=== PATIENT | male | born 1935 | race African-American/Black ===

== ENCOUNTER 2021-02-23 13:20 | Inpatient (IN) | payer MEDICARE ==
[~2021-02-23] VITALS: Ht 188 cm; Wt 87.5 kg
[2021-02-23 14:55] LABS: HEMATOCRIT. 31.2 % (42.0-52.0); HEMOGLOBIN. 10.2 g/dL (14.0-18.0); MEAN CORPUSCULAR HEMOGLOBIN 29.8 pg (28.0-32.0); MEAN CORPUSCULAR VOLUME 91.6 fL (80.0-94.0); MEAN PLATELET VOLUME 8.5 fl (7.4-10.4); PLATELET 168 x1000/uL (130-400); RED CELL DISTRIBUTION WIDTH 15.5 % (11.6-14.6)
[2021-02-23 15:02] LABS: CHLORIDE 107 mEq/L (98-107)
[2021-02-23] MEDS ORDERED: FUROSEMIDE 20MG/2ML VIAL IVP ONE (16:00)
[2021-02-23 17:22] LABS: CLARITY URINE CLEAR (CLEAR); COLOR URINE YELLOW (YELLOW); KETONES URINE NEGATIVE (NEGATIVE); LEUKOCYTE ESTERASE URINE NEGATIVE (NEGATIVE); NITRITE URINE NEGATIVE (NEGATIVE); OCCULT BLOOD URINE NEGATIVE (NEGATIVE); PH URINE 6.5 (4.5-8.0); PROTEIN URINE NEGATIVE (NEGATIVE); SPECIFIC GRAVITY URINE 1.007 (1.005-1.030); UROBILINOGEN URINE 0.2 E.U./dL (0.2-1.0)
[2021-02-23 17:25] LABS: PLATELET ESTIMATE NORMAL
[2021-02-23] MEDS ORDERED: AMLODIPINE 10MG TABLET PO NR (19:30)
[2021-02-23] MEDS ORDERED: DIPHENHYDRAMINE 50MG/ML VIAL IV PRN (22:45)
[2021-02-23] MEDS ORDERED: NA PHOS,M-B/NA PHOS,DI-BA ENEMA 118ML PR PRN (22:45)
[2021-02-23] MEDS ORDERED: HYDRALAZINE 20MG/ML VIAL IV PRN (22:45)
[2021-02-23] MEDS ORDERED: GUAIFENESIN 200MG/10ML SUGAR FREE UDC PO PRN (22:45)
[2021-02-23] MEDS ORDERED: DOCUSATE SODIUM 100MG CAPSULE PO PRN (22:45)
[2021-02-23] MEDS ORDERED: HYDROCODONE/APAP 7.5/325MG 1 TAB TABLET PO PRN (22:45)
[2021-02-23] MEDS ORDERED: CLONIDINE 0.1MG TABLET PO PRN (22:45)
[2021-02-23] MEDS ORDERED: ACETAMINOPHEN 650MG/20.3ML UDC GT PRN ×2 (22:45)
[2021-02-23] MEDS ORDERED: MAGNESIUM/ALUMINUM HYDROXIDE/SIMETHICONE 30ML UDC PO PRN (22:45)
[2021-02-23] MEDS ORDERED: ACETAMINOPHEN 325MG TABLET PO PRN ×2 (22:45)
[2021-02-23] MEDS ORDERED: HYDROCODONE/ACETAMINOPHEN 10/325MG TABLET PO PRN (22:45)
[2021-02-23] MEDS: METOPROLOL TARTRATE 25MG TABLET PO SCH (22:56)
[2021-02-23] MEDS: HYDRALAZINE HCL 100MG TABLET PO SCH (22:56)
[2021-02-23] MEDS: ENOXAPARIN 30MG/0.3ML SYR SUBCUT SCH (23:33)
[2021-02-24] VITALS (7 sets, daily range): BP systolic 148–169; BP diastolic 58–104
[2021-02-24] MEDS: HYDRALAZINE HCL 100MG TABLET PO SCH ×3 (06:00→22:33)
[2021-02-24 06:21] LABS: BASOPHILS % 0.7 % (0.0-2.0); EOSINOPHILS % 3.1 % (0.0-5.0); HEMATOCRIT. 30.9 % (42.0-52.0); HEMOGLOBIN. 10.4 g/dL (14.0-18.0); LYMPHOCYTES % 21.2 % (20.0-50.0); MEAN CORPUSCULAR HEMOGLOBIN 30.4 pg (28.0-32.0); MEAN CORPUSCULAR VOLUME 90.6 fL (80.0-94.0); MEAN PLATELET VOLUME 8.9 fl (7.4-10.4); MONOCYTES % 14.1 % (2.0-8.0); NEUTROPHILS % 60.9 % (40.0-76.0); PLATELET 167 x1000/uL (130-400); RED BLOOD CELL COUNT 3.41 mill/uL (4.7-6.1); RED CELL DISTRIBUTION WIDTH 15.3 % (11.6-14.6)
[2021-02-24] MEDS ORDERED: AMLO10TA4 PO (07:24)
[2021-02-24] MEDS ORDERED: ENAL5TAB21 MT (07:33)
[2021-02-24] MEDS ORDERED: ERGO80009 (07:33)
[2021-02-24] MEDS ORDERED: DONE5TAB26 MT (07:33)
[2021-02-24] MEDS ORDERED: LORA-250 PO (07:33)
[2021-02-24] MEDS ORDERED: TRAM50TA3 MT (07:33)
[2021-02-24] MEDS ORDERED: ALLO300T2 PO (07:33)
[2021-02-24] MEDS ORDERED: HYDR-4135 MT (07:33)
[2021-02-24] MEDS ORDERED: TAMS-11 PO (07:33)
[2021-02-24] MEDS ORDERED: OMEP20CA14 MT (07:33)
[2021-02-24] MEDS ORDERED: BUDE6.9H INH (07:33)
[2021-02-24] MEDS ORDERED: ATOR20TA65 PO (07:33)
[2021-02-24] MEDS ORDERED: LABE100T5 PO (07:33)
[2021-02-24] MEDS ORDERED: CLOP75TA15 MT (07:33)
[2021-02-24] MEDS ORDERED: RISP1TAB97 MT (07:33)
[2021-02-24] MEDS: METOPROLOL TARTRATE 25MG TABLET PO SCH ×2 (08:02→17:00)
[2021-02-24 08:10] LABS: CHLORIDE 107 mEq/L (98-107)
[2021-02-24 08:19] LABS: LDL CHOLESTEROL 53 mg/dL (5-100)
[2021-02-24 08:20] LABS: HDL CHOLESTEROL 59 mg/dL (40-59)
[2021-02-24 09:24] LABS: T4 FREE 0.99 ng/dL (0.76-1.46)
[2021-02-24] MEDS: AMLODIPINE 10MG TABLET PO SCH (09:42)
[2021-02-24 16:02] LABS: CREATINE KINASE MB FRACTION 6.4 ng/mL (0.5-3.6)
[2021-02-24] MEDS: ENOXAPARIN 30MG/0.3ML SYR SUBCUT SCH (22:32)
[2021-02-24 23:55] LABS: CREATINE KINASE MB FRACTION 4.3 ng/mL (0.5-3.6)
[2021-02-25] VITALS (7 sets, daily range): BP systolic 132–154; BP diastolic 52–66
[2021-02-25] MEDS: HYDRALAZINE HCL 100MG TABLET PO SCH (05:22)
[2021-02-25] MEDS ORDERED: LOSARTAN POTASSIUM 25 MG TABLET PO SCH (09:15)
[2021-02-25] MEDS: AMLODIPINE 10MG TABLET PO SCH (09:17)
[2021-02-25] MEDS: METOPROLOL TARTRATE 25MG TABLET PO SCH (09:18)
[2021-02-25] MEDS ORDERED: LOSA25TA3 PO (10:12)
[2021-02-25] MEDS ORDERED: HYDR100T26 PO (10:12)
[2021-02-25] MEDS ORDERED: METO25TA6 PO (10:12)
[2021-02-25] MEDS ORDERED: AMLO10TA80 PO (10:12)
[2021-02-25 10:34] LABS: CREATINE KINASE MB FRACTION 3.7 ng/mL (0.5-3.6)
== END 2021-02-25 16:27 | disposition home health service (06) | DRG 304 ==
LOC: ER 14:58 → 5EST 17:44 → ENRESERV 22:59
PROVIDERS: ADMIT Family Medicine; ATTEND Family Medicine
DX: I16.1 Hypertensive emergency (principal); I50.31 Acute diastolic (congestive) heart failure; E78.5 Hyperlipidemia, unspecified; N18.9 Chronic kidney disease, unspecified; D63.1 Anemia in chronic kidney disease; I27.20 Pulmonary hypertension, unspecified; I13.0 Hypertensive heart and chronic kidney disease with heart failure and stage 1 through stage 4 chronic kidney disease, or unspecified chronic kidney disease; Z79.899 Other long term (current) drug therapy; R77.8 Other specified abnormalities of plasma proteins; R79.89 Other specified abnormal findings of blood chemistry
CPT/HCPCS: 36415; 71045; 76770; 80048; 80053; 80061; 81003; 82550; 82553; 83036; 83880; 84439; 84443; 84484; 85025; 85379; 93005; 93306; 99285; J0360; J1650; J1940